=== PATIENT | female | born 1975 | race American Indian/Alaskan Native ===

== ENCOUNTER 2016-10-08 17:08 | Emergency (ER) | payer SELFPAY ==
--- NOTE | 2016-10-08 21:09 | Emergency Department Report ---
ED General Adult HPI - General Chief complaint: Headache Stated complaint: HEADACHE/COUGH Time Seen by Provider: 10/08/16 21:04 Source: patient Mode of arrival: Ambulatory Limitations: No Limitations - History of Present Illness Initial comments: 41-year-old -[place] female comes in complaining of headache this off and on since Friday. She reports it is worse while at work or being busy better with lying down and resting. Patient denies any nausea no vomiting she denies any dizziness or blurred vision. She does complain of chest pain only with the cough that started today. Patient complains of a nonproductive cough as well as nasal congestion runny nose and sneezing. Patient's last known menstrual period was 10/06/2016 she currently has no past medical history currently takes no medication on a daily basis. Her headaches as located in the frontal area. -: days(s) (4) Location: head Severity scale (0 -10): 7 Quality: dull Consistency: intermittent Improves with: rest Worsens with: movement Associated Symptoms: cough, other Treatments Prior to Arrival: NSAID (nasal congestion and sneezing) - Related Data Previous Rx's Medication Instructions Recorded Last Taken Type Cetirizine HCl [ZyrTEC] 10 mg PO QDAY #30 capsule 10/08/16 Unknown Rx Fluticasone [Flonase] 1 spray NS QDAY #1 bottle 10/08/16 Unknown Rx Pseudoephedrine [Sudafed] 30 mg PO Q6H PRN #60 tablet 10/08/16 Unknown Rx Allergies Allergy/AdvReac Type Severity Reaction Status Date / Time No Known Allergies Allergy Verified 10/08/16 17:58 ED Review of Systems ROS: Stated complaint: HEADACHE/COUGH Other details as noted in HPI ED Past Medical Hx - Past Medical History Hx Hypertension: Yes (WITH 1 ) - Surgical History Additional Surgical History: "UTERINE SURGERY". TUBAL LIGATION - Social History Smoking Status: Never Smoker Substance Use Type: None - Medications Home Medications: Home Medications Medication Instructions Recorded Confirmed Last Taken Type Cetirizine HCl [ZyrTEC] 10 mg PO QDAY #30 capsule 10/08/16 Unknown Rx Fluticasone [Flonase] 1 spray NS QDAY #1 bottle 10/08/16 Unknown Rx Pseudoephedrine [Sudafed] 30 mg PO Q6H PRN #60 tablet 10/08/16 Unknown Rx ED Physical Exam - General Limitations: No Limitations - Other Other exam information: GENERAL: Alert and oriented x3, no apparent distress, Normal Gait, atraumatic. HEAD: Head is normocephalic and a-traumatic. Frontal head tenderness EYES: Extra ocular muscles are intact. Pupils are equal, round, and reactive to light and accommodation. EARS: symetrical, atraumatic, non tender, ear canal clear and moderate cerumen, tympanic membrance non inflamed. gross auditory nml bilaterally. NOSE: Nose symetrical, Nontender,Nares appeared normal. Bilateral nares turbinates hypertrophic L exudate MOUTH:Mouth is well hydrated and without lesions. Tonsils nonerythematous or swollen, Uvula midline, Tongue not elevated. Mucous membranes are moist. Posterior pharynx clear, no exudate or lesions. Patent airways. Nasal drip NECK: Supple. Non edematous, No carotid bruits. No lymphadenopathy or thyromegaly. LUNGS: Symetrical with respiration, No wheezing, no rales or crackles, CTAB. HEART: S1, S2 present, regular rate and rhythm without murmur, no rubs, no gallops. ABDOMEN: No organomegaly was noted,Positive bowel sounds, soft, and non- distended. . Nontender to palpation on all Quadrants, NO CVA tenderness. EXTREMITIES/MUSCULOSKELETAL: No cyanosis, clubbing, rash, lesions or edema. Full ROM bilaterally. UE/LE Pulses 2+ bilaterally. LE and UE 5+ strength bilaterally NEUROLOGIC: No focal Deficit, Cranial nerves II through XII are grossly intact. No loss of sensation, No facial droop, PSYCHIATRIC: Mood is congruent with affect, . SKIN: Warm and dry, No lesions, No ulceration or induration present ED Course Vital Signs 10/08/16 10/08/16 18:00 22:01 Temperature 98.2 F Pulse Rate 74 82 Respiratory 20 Rate Blood Pressure 158/108 165/113 O2 Sat by Pulse 100 Oximetry - Reevaluation(s) Reevaluation #1: 10/08/16 23:36 Is reevaluated by this provider fast track patient reports her headache has gone away. Repeated her blood pressure by this provider was 139/100. Temperature was 97.9 respirations were 16 heart rate was 74. ED Medical Decision Making - Lab Data Result diagrams: 10/08/16 21:56 - Medical Decision Making Patient's been evaluated by this provider fast track. Request for nurse to repeat blood pressure concern for headache secondary to elevated blood pressure. Discussed with patient that this is most likely seasonal allergies since she has nasal congestion and runny nose sneezing and cough with clear lungs. Discussed with patient will place her on Zyrtec's Sudafed and Flonase and have her follow-up with an night clerk auditor. We will give patient clonidine 0.2 mg as well as check a BMP. Patient verbalized understanding Critical care attestation.: If time is entered above; I have spent that time in minutes in the direct care of this critically ill patient, excluding procedure time. ED Disposition Clinical Impression: Elevated blood pressure Seasonal allergies Qualifiers: Allergic rhinitis trigger: unspecified Qualified Code(s): J30.2 - Other seasonal allergic rhinitis Disposition: DISCHARGED TO HOME OR SELFCARE Is pt being admited?: No Does the pt Need Aspirin: No Condition: Stable Instructions: Heart Healthy Diet (ED), Low Sodium Diet (ED) Additional Instructions: Please follow-up with one of the providers that I have referred you to. It is very important for you to have her blood pressure checked within 3-5 days. Take medication as prescribed. Prescriptions: Cetirizine HCl [ZyrTEC] 10 mg PO QDAY #30 capsule Fluticasone [Flonase] 1 spray NS QDAY #1 bottle Pseudoephedrine [Sudafed] 30 mg PO Q6H PRN #60 tablet PRN Reason: Nasal Congestion Referrals: PRIMARY CARE, [Primary Care Provider] - 3-5 Days [facility] [Outside] - 3-5 Days [facility] [Outside] - 3-5 Days [facility] [Outside] - 3-5 Days [facility] [Outside] - 3-5 Days Forms: Work/School Release Form(ED)
[2016-10-08] MEDS ORDERED: CATAPRES PO ONE (21:48)
[2016-10-08 22:27] LABS: Anion Gap 16 mmol/L; BUN/Creatinine Ratio 8.75; Blood Urea Nitrogen 7 mg/dL (7-17); Calcium 9.1 mg/dL (8.4-10.2); Carbon Dioxide 24 mmol/L (22-30); Chloride 103.6 mmol/L (98-107); Glucose 95 mg/dL (65-100); Potassium 3.7 mmol/L (3.6-5.0); Sodium 140 mmol/L (137-145)
[2016-10-08 23:50] VITALS: BP 139/100
== END 2016-10-08 23:49 | disposition home or self-care (01) ==
LOC: ED 17:08
DX: R03.0 Elevated blood-pressure reading, without diagnosis of hypertension (principal); J30.2 Other seasonal allergic rhinitis; Z98.51 Tubal ligation status
CPT/HCPCS: 36415; 80048; 93005; 93010; 99283

== ENCOUNTER 2016-10-12 15:05 | Emergency (ER) | payer SELFPAY ==
--- NOTE | 2016-10-12 18:58 | Emergency Department Report ---
ED General Adult HPI - General Chief complaint: High BP Stated complaint: HIGH BP Time Seen by Provider: 10/12/16 18:39 Source: patient Mode of arrival: Ambulatory Limitations: No Limitations - History of Present Illness Initial comments: PT states she was seen on 10-08-16 for her allergies and she was dx with htn. PT states she was given a pill in the ED for her bp but was not sent home with any RX. PT states she went to the fire station today and had her bp rechecked and her bp was 202/140. PT states she came to the ED and her bp has gone down some. PT states since being in the ED, her bp has gone back up. PT was given RX for allergies, pt states she is only taken her Zyrtec. PT states her last dose of Sudafed was on FRI. PT denies CP/ headache/ sob MD Complaint: elevated bp -: Gradual, unknown (dx with htn on 10-08-16 ) Severity scale (0 -10): 0 Associated Symptoms: denies: chest pain, fever/chills, shortness of breath - Related Data Previous Rx's Medication Instructions Recorded Last Taken Type Cetirizine HCl [ZyrTEC] 10 mg PO QDAY #30 capsule 10/08/16 Unknown Rx Fluticasone [Flonase] 1 spray NS QDAY #1 bottle 10/08/16 Unknown Rx Pseudoephedrine [Sudafed] 30 mg PO Q6H PRN #60 tablet 10/08/16 Unknown Rx Allergies Allergy/AdvReac Type Severity Reaction Status Date / Time No Known Allergies Allergy Verified 10/12/16 15:40 ED Review of Systems ROS: Stated complaint: HIGH BP Other details as noted in HPI Comment: All other systems reviewed and negative ENT: other (nasal drainage ). denies: ear pain, congestion Respiratory: denies: shortness of breath, SOB with exertion, SOB at rest Cardiovascular: denies: chest pain, palpitations Neurological: denies: headache ED Past Medical Hx - Past Medical History Previous Medical History?: No Hx Hypertension: Yes (WITH 1 ) - Surgical History Past Surgical History?: No Additional Surgical History: "UTERINE SURGERY". TUBAL LIGATION - Social History Smoking Status: Never Smoker Substance Use Type: None - Medications Home Medications: Home Medications Medication Instructions Recorded Confirmed Last Taken Type Cetirizine HCl [ZyrTEC] 10 mg PO QDAY #30 capsule 10/08/16 Unknown Rx Fluticasone [Flonase] 1 spray NS QDAY #1 bottle 10/08/16 Unknown Rx Pseudoephedrine [Sudafed] 30 mg PO Q6H PRN #60 tablet 10/08/16 Unknown Rx ED Physical Exam - General Limitations: No Limitations General appearance: alert, in no apparent distress - Head Head exam: Present: atraumatic, normocephalic - ENT ENT exam: Present: mucous membranes moist, other (clear nasal drainage ) - Neck Neck exam: Present: normal inspection, full ROM. Absent: tenderness, lymphadenopathy - Respiratory Respiratory exam: Present: normal lung sounds bilaterally. Absent: respiratory distress, wheezes - Cardiovascular Cardiovascular Exam: Present: regular rate, normal rhythm, normal heart sounds - Extremities Exam Extremities exam: Present: normal inspection, full ROM - Back Exam Back exam: Present: normal inspection, full ROM - Neurological Exam Neurological exam: Present: alert, oriented X3, normal gait - Psychiatric Psychiatric exam: Present: normal affect, normal mood - Skin Skin exam: Present: warm, dry, intact, normal color ED Course Vital Signs 10/12/16 10/12/16 15:40 18:16 Temperature 98.1 F Pulse Rate 96 H 80 Respiratory 18 20 Rate Blood Pressure 161/107 Blood Pressure 177/106 [Right] O2 Sat by Pulse 96 Oximetry - Reevaluation(s) Reevaluation #1: 10/12/16 19:11 Reviewed note and lab from previous visit. Spoke to pt regarding the need to follow up with PCP. PT states she is going on Friday. PT advised to stop taking the Sudafed she was prescribed at previous visit. PT verbalizes understanding ED Medical Decision Making - Differential Diagnosis htn Critical care attestation.: If time is entered above; I have spent that time in minutes in the direct care of this critically ill patient, excluding procedure time. ED Disposition Clinical Impression: HTN (hypertension) Qualifiers: Hypertension type: essential hypertension Qualified Code(s): I10 - Essential ( primary) hypertension Disposition: DISCHARGED TO HOME OR SELFCARE Is pt being admited?: No Does the pt Need Aspirin: No Condition: Stable Instructions: Hypertension (ED) Additional Instructions: Stop Sudafed Follow up with PCP this week to establish primary care Return to ED if new or worsening symptoms. Referrals: PRIMARY CARE, [Primary Care Provider] - 3-5 Days Forms: Work/School Release Form(ED) Time of Disposition: 19:16
[2016-10-12] MEDS ORDERED: HCTZ PO ONE (19:11)
[2016-10-12 19:49] VITALS: BP 147/99
== END 2016-10-12 19:50 | disposition home or self-care (01) ==
LOC: ED 15:05
DX: I10 Essential (primary) hypertension (principal)
CPT/HCPCS: 99282

== ENCOUNTER 2016-11-11 11:22 | Emergency (ER) | payer SELFPAY ==
[2016-11-11 12:07] VITALS: BP 136/92
--- NOTE | 2016-11-11 12:24 | XRay Report ---
RIGHT HAND, 2 views: History: Right hand pain. The bony architecture is intact. There is poor separation of the fingers. Bony alignment is normal. No soft tissue abnormalities are seen. The joint spaces appear preserved. IMPRESSION: Unremarkable 2 views right hand.
--- NOTE | 2016-11-11 15:51 | Emergency Department Report ---
HPI - General Chief Complaint: Extremity Injury, Upper Time Seen by Provider: 11/11/16 15:07 - HPI HPI: She is a 41-year-old female presents to ED complaining of right hand pain 2 days. Patient states she was picking up some heavy boxes at work and shortly after that was when she started experiencing pulling type out of 10 intensity pain in the palm of her right hand. Patient states she went to work today but could not continue lifting due to pain. She denies fevers/chills/nausea/vomiting/spitting sections of breath or any other problems. ED Past Medical Hx - Past Medical History Previous Medical History?: Yes Hx Hypertension: Yes (WITH 1 ) - Surgical History Past Surgical History?: Yes Additional Surgical History: "UTERINE SURGERY". TUBAL LIGATION - Social History Smoking Status: Never Smoker Substance Use Type: None - Medications Home Medications: Home Medications Medication Instructions Recorded Confirmed Last Taken Type Cetirizine HCl [ZyrTEC] 10 mg PO QDAY #30 capsule 10/08/16 Unknown Rx Fluticasone [Flonase] 1 spray NS QDAY #1 bottle 10/08/16 Unknown Rx Hydrochlorothiazide [HCTZ] 25 mg PO QDAY #20 tablet 10/12/16 Unknown Rx Cyclobenzaprine [Flexeril] 10 mg PO QHS PRN #20 tablet 11/11/16 Unknown Rx Ibuprofen [Motrin] 600 mg PO Q8H PRN #20 tablet 11/11/16 Unknown Rx ED Review of Systems ROS: Stated complaint: RT HAND PAIN Other details as noted in HPI Constitutional: denies: chills, fever Eyes: denies: eye pain, eye discharge, vision change ENT: denies: ear pain, throat pain Respiratory: denies: cough, shortness of breath, wheezing Cardiovascular: denies: chest pain, palpitations Endocrine: no symptoms reported Gastrointestinal: denies: abdominal pain, nausea, diarrhea Genitourinary: denies: urgency, dysuria, discharge Musculoskeletal: denies: back pain, joint swelling, arthralgia Skin: denies: rash, lesions Neurological: denies: headache, weakness, paresthesias Psychiatric: denies: anxiety, depression Hematological/Lymphatic: denies: easy bleeding, easy bruising Physical Exam - Physical Exam Vital Signs: Vital Signs 11/11/16 12:05 Temperature 98.1 F Pulse Rate 78 Respiratory 18 Rate Blood Pressure 136/92 O2 Sat by Pulse 100 Oximetry Physical Exam: GENERAL: Alert and oriented x3, no apparent distress, Normal Gait, atraumatic. HEAD: Head is normocephalic and a-traumatic. EYES: Extra ocular muscles are intact. Pupils are equal, round, and reactive to light and accommodation. NECK: Supple. Non edematous, No carotid bruits. No lymphadenopathy or thyromegaly. No C-spine tenderness LUNGS: Symetrical with respiration, No wheezing, no rales or crackles, CTAB. HEART: S1, S2 present, regular rate and rhythm without murmur, no rubs, no gallops. ABDOMEN: No organomegaly was noted,Positive bowel sounds, soft, and non- distended. . Nontender to palpation on all Quadrants, NO CVA tenderness. EXTREMITIES/MUSCULOSKELETAL: No cyanosis, clubbing, rash, lesions or edema. Full ROM bilaterally in hands bilaterally. Capillary refill 2 seconds. Non- edema, mild tenderness to palpation of the palm. UE Pulses 2+ bilaterally. UE 5 + strength bilaterally, NEUROLOGIC: No focal Deficit, Cranial nerves II through XII are grossly intact. No loss of sensation, SKIN: Warm and dry, No lesions, No ulceration or induration present. ED Course Vital Signs 11/11/16 12:05 Temperature 98.1 F Pulse Rate 78 Respiratory 18 Rate Blood Pressure 136/92 O2 Sat by Pulse 100 Oximetry ED Medical Decision Making - Medical Decision Making 41-year-old female presents with right hand pain ED course: Discussed the patient and her wrist hand Disposition and take medication as prescribed. Discussed the patient was the symptoms return to ED. Vital signs are normal patient is in no acute distress. Patient verbalization understands and will comply to follow instructions as given Critical care attestation.: If time is entered above; I have spent that time in minutes in the direct care of this critically ill patient, excluding procedure time. ED Disposition Clinical Impression: Myalgia Disposition: DISCHARGED TO HOME OR SELFCARE Is pt being admited?: No Does the pt Need Aspirin: No Condition: Stable Instructions: Trigger Point Pain (ED), Musculoskeletal Pain (ED), Heat Pack Application (ED) Prescriptions: Cyclobenzaprine [Flexeril] 10 mg PO QHS PRN #20 tablet PRN Reason: Muscle Spasm Ibuprofen [Motrin] 600 mg PO Q8H PRN #20 tablet PRN Reason: Pain Referrals: PRIMARY CARE, [Primary Care Provider] - 3-5 Days RICARDO GALVAN MD [Referring] - 3-5 Days [facility] [Outside] - 3-5 Days [facility] [Outside] - 3-5 Days Forms: Work/School Release Form(ED) Time of Disposition: 15:53
== END 2016-11-11 16:16 | disposition home or self-care (01) ==
LOC: ED 11:22
DX: M79.1 Myalgia (principal); I10 Essential (primary) hypertension
CPT/HCPCS: 99283

== ENCOUNTER 2017-11-30 10:05 | Emergency (ER) | payer SELFPAY ==
[2017-11-30] MEDS ORDERED: MOTRIN PO ONE (10:31)
[2017-11-30] MEDS ORDERED: HCTZ PO ONE (10:31)
[2017-11-30] MEDS ORDERED: NORVASC PO ONE (10:38)
--- NOTE | 2017-11-30 10:49 | Emergency Department Report ---
ED Lower Extremity HPI - General Chief Complaint: Extremity Injury, Lower Stated Complaint: FOOT SWOLLEN X4DAYS/HIGH BP Time Seen by Provider: 11/30/17 10:31 Source: patient Mode of arrival: Ambulatory Limitations: No Limitations - History of Present Illness Initial Comments: This is a 42-year-old female nontoxic, well nourished in appearance, no acute signs of distress presents to the ED with c/o of right ankle pain and swelling x3 days. Patient stated she has been walking a lot on her feet. Patient denies any trauma to the area. Patient denies any joint redness, joint swelling, fever , chills, nausea, vomiting, chest pain or shortness breath. Patient denies abnormal or decreased gait. Patient denies any allergies. PMH includes HTN which patient stated has not been taking any medications because her MD took her off it. PAtient stated that pat week her blood pressure was elevated and she was not able to follow-up with PCP. MD Complaint: ankle injury -: days(s) (3) Injury: Ankle: Right Place: home Severity: mild Severity scale (0 -10): 8 Improves With: immobilization Worsens With: movement, palpation Associated Symptoms: swelling, able to partially bear weight, ambulatory. denies: snap/pop sensation, numbness, tingling, unable to bear weight - Related Data Previous Rx's Medication Instructions Recorded Last Taken Type Cetirizine HCl [ZyrTEC] 10 mg PO QDAY #30 capsule 10/08/16 Unknown Rx Fluticasone [Flonase] 1 spray NS QDAY #1 bottle 10/08/16 Unknown Rx Hydrochlorothiazide [HCTZ] 25 mg PO QDAY #20 tablet 10/12/16 Unknown Rx Cyclobenzaprine [Flexeril] 10 mg PO QHS PRN #20 tablet 11/11/16 Unknown Rx Ibuprofen [Motrin] 600 mg PO Q8H PRN #20 tablet 11/11/16 Unknown Rx Hydrochlorothiazide [HCTZ] 25 mg PO QDAY #30 tablet 11/30/17 Unknown Rx Ibuprofen [Motrin] 600 mg PO Q8H PRN #30 tablet 11/30/17 Unknown Rx amLODIPine [Norvasc] 10 mg PO DAILY #30 tab 11/30/17 Unknown Rx Allergies Allergy/AdvReac Type Severity Reaction Status Date / Time No Known Allergies Allergy Verified 11/30/17 10:07 ED Review of Systems ROS: Stated complaint: FOOT SWOLLEN X4DAYS/HIGH BP Other details as noted in HPI Constitutional: denies: chills, fever Eyes: denies: eye pain, eye discharge, vision change ENT: denies: ear pain, throat pain Respiratory: denies: cough, shortness of breath, wheezing Cardiovascular: denies: chest pain, palpitations Endocrine: no symptoms reported Gastrointestinal: denies: abdominal pain, nausea, diarrhea Genitourinary: denies: urgency, dysuria, discharge Musculoskeletal: arthralgia. denies: back pain, joint swelling Skin: denies: rash, lesions Neurological: denies: headache, weakness, paresthesias Psychiatric: denies: anxiety, depression Hematological/Lymphatic: denies: easy bleeding, easy bruising ED Past Medical Hx - Past Medical History Hx Hypertension: Yes - Surgical History Additional Surgical History: "UTERINE SURGERY". TUBAL LIGATION - Social History Smoking Status: Never Smoker - Medications Home Medications: Home Medications Medication Instructions Recorded Confirmed Last Taken Type Cetirizine HCl [ZyrTEC] 10 mg PO QDAY #30 capsule 10/08/16 Unknown Rx Fluticasone [Flonase] 1 spray NS QDAY #1 bottle 10/08/16 Unknown Rx Hydrochlorothiazide [HCTZ] 25 mg PO QDAY #20 tablet 10/12/16 Unknown Rx Cyclobenzaprine [Flexeril] 10 mg PO QHS PRN #20 tablet 11/11/16 Unknown Rx Ibuprofen [Motrin] 600 mg PO Q8H PRN #20 tablet 11/11/16 Unknown Rx Hydrochlorothiazide [HCTZ] 25 mg PO QDAY #30 tablet 11/30/17 Unknown Rx Ibuprofen [Motrin] 600 mg PO Q8H PRN #30 tablet 11/30/17 Unknown Rx amLODIPine [Norvasc] 10 mg PO DAILY #30 tab 11/30/17 Unknown Rx ED Physical Exam - General Limitations: No Limitations General appearance: alert, in no apparent distress - Head Head exam: Present: atraumatic, normocephalic - Eye Eye exam: Present: normal appearance Pupils: Present: normal accommodation - ENT ENT exam: Present: normal exam, mucous membranes moist - Neck Neck exam: Present: normal inspection, full ROM. Absent: tenderness, meningismus, lymphadenopathy - Respiratory Respiratory exam: Present: normal lung sounds bilaterally. Absent: respiratory distress, wheezes, rales, rhonchi, stridor, chest wall tenderness, accessory muscle use, decreased breath sounds, prolonged expiratory - Cardiovascular Cardiovascular Exam: Present: regular rate, normal rhythm, normal heart sounds. Absent: bradycardia, tachycardia, irregular rhythm, systolic murmur, diastolic murmur, rubs, gallop - GI/Abdominal GI/Abdominal exam: Present: soft, normal bowel sounds. Absent: distended, tenderness, guarding, rebound, rigid, diminished bowel sounds - Rectal Rectal exam: Present: deferred - Extremities Exam Extremities exam: Present: normal inspection, full ROM, tenderness, normal capillary refill. Absent: joint swelling, calf tenderness - Expanded Lower Extremity Exam Right Hip exam: Present: normal inspection, full ROM Upper Leg exam: Present: normal inspection, full ROM Knee exam: Present: normal inspection, full ROM Lower Leg exam: Present: normal inspection, full ROM Ankle exam: Present: normal inspection, full ROM, tenderness, swelling. Absent : abrasion, laceration, ecchymosis, deformity, crepidus, dislocation, erythema, anterior draw sign Foot/Toe exam: Present: normal inspection, full ROM. Absent: tenderness, swelling, abrasion, laceration, ecchymosis, deformity, crepidus, dislocation, erythema, amputation, puncture wound, foreign body, calcaneal tenderness, tenderness at base of 5th metatarsal, nail avulsion, subungual hematoma Neuro vascular tendon exam: Present: no vascular compromise. Absent: pulse deficit, abnormal cap refill, motor deficit, sensory deficit, tendon deficit, extremity cold to touch, pallor, abnormal 2-point discrimination, decreased fine /light touch, foot drop, peroneal nerve deficit, significant pain with passive ROM of distal joint Gait: Positive: observed and limited by pain - Back Exam Back exam: Present: normal inspection, full ROM - Neurological Exam Neurological exam: Present: alert, oriented X3, normal gait - Psychiatric Psychiatric exam: Present: normal affect, normal mood - Skin Skin exam: Present: warm, dry, intact, normal color. Absent: rash ED Course Vital Signs 11/30/17 10:07 Temperature 98.5 F Pulse Rate 86 Respiratory 18 Rate Blood Pressure 166/109 O2 Sat by Pulse 100 Oximetry - Reevaluation(s) Reevaluation #1: 05/27/18 10:53 Patient is speaking in full sentences with no signs of distress noted. ED Lower Extremity MDM - Medical Decision Making This is a 42-year-old female that presents with right ankle strain and HTN. Patient is stable and was examined by me. I referred patient to an orthopedic doctor for further evaluation for possible MRI. X-ray has been obtained and dictated by the radiologist. Patient is notified of the x-ray report with noted by the patient. Patient does have normal gait with no tenderness and no joint swelling. No ecchymosis. no joint redness or swelling. Not warm to touch. No signs of cellulites present. Patient was instructed to RICE therapy. Patient received Motrin for pain. Patient also is treated with her medications that she stayed stopped taking which was HCTZ 25 mg and Norvasc 10 mg. I will prescribed patient her medications and will have patient f/u with PCP. Patient is discharged with Motrin. At time of discharge, the patient does not seem toxic or ill in appearance. No acute signs of distress noted. Patient agrees to discharge treatment plan of care. No further questions noted by the patient. Critical care attestation.: If time is entered above; I have spent that time in minutes in the direct care of this critically ill patient, excluding procedure time. ED Disposition Clinical Impression: Hypertension Qualifiers: Hypertension type: unspecified Qualified Code(s): I10 - Essential (primary) hypertension Right ankle sprain Qualifiers: Encounter type: initial encounter Involved ligament of ankle: unspecified ligament Qualified Code(s): S93.401A - Sprain of unspecified ligament of right ankle, initial encounter Disposition: TO HOME OR SELFCARE Is pt being admited?: No Does the pt Need Aspirin: No Condition: Stable Instructions: Hypertension (ED), Ankle Sprain (ED), RICE Therapy (ED), Ibuprofen (By mouth) Additional Instructions: Follow-up with a primary care doctor in 3-5 days or if symptoms worsen and continue return to emergency room as soon as possible. Keep a daily diary of your blood pressure and present it to your primary care doctor. Prescriptions: amLODIPine [Norvasc] 10 mg PO DAILY #30 tab Hydrochlorothiazide [HCTZ] 25 mg PO QDAY #30 tablet Ibuprofen [Motrin] 600 mg PO Q8H PRN #30 tablet PRN Reason: Pain Referrals: PRIMARY CARE, [Primary Care Provider] - 3-5 Days GOODJOIN,ALANNAH B, MD [Staff Physician] - 3-5 Days [facility] [Outside] - 3-5 Days [facility] [Outside] - 3-5 Days GAYATRI CERVANTES MD [Staff Physician] - 3-5 Days Forms: Work/School Release Form(ED)
[2017-11-30 11:43] VITALS: BP 151/91
== END 2017-11-30 12:02 | disposition home or self-care (01) ==
LOC: ED 10:05
DX: S93.401A Sprain of unspecified ligament of right ankle, initial encounter (principal); I10 Essential (primary) hypertension; Z98.51 Tubal ligation status; X58.XXXA Exposure to other specified factors, initial encounter; Y93.01 Activity, walking, marching and hiking; Y92.098 Other place in other non-institutional residence as the place of occurrence of the external cause; Y99.8 Other external cause status
CPT/HCPCS: 99283

== ENCOUNTER 2018-01-06 11:23 | Emergency (ER) | payer OTHER ==
[2018-01-06 11:30] VITALS: BP 146/96
--- NOTE | 2018-01-06 12:11 | Emergency Department Report ---
Chief Complaint: Extremity Injury, Lower Stated Complaint: SWOLLEN ANKLE Time Seen by Provider: 01/06/18 12:05 - HPI History of Present Illness: Patient is a 42-year-old [place] female who has intermittent right ankle swelling. This happens randomly has been going on for several weeks. Patientis no pain is no injury. No chest pain shortness of breath fevers chills. - ROS Review of Systems: All other systems reviewed and are negative - Exam Vital Signs: Vital Signs 01/06/18 11:27 Temperature 98.6 F Pulse Rate 73 Respiratory 20 Rate Blood Pressure 146/96 O2 Sat by Pulse 98 Oximetry Physical Exam: Focused physical exam patient has trace ankle swelling on the right lower extremity. There is no warmth redness or tenderness. MSE screening note: Focused history and physical exam performed. Due to findings the following was ordered: ED Medical Decision Making - Medical Decision Making Patient has very slight dependent edema. Did have a conversation with the patient regarding venous return of blood flow. Patient is not medical emergency. Patient has elected to not pay the $150 co-pay. Patient will be given information for a vascular doctor ED Disposition for MSE Clinical Impression: Dependent edema Disposition: Z-07 MED SCREENING EXAM-LEFT Is pt being admited?: No Does the pt Need Aspirin: No Condition: Stable Referrals: IVY CARMONA MD [Staff Physician] - 3-5 Days
== END 2018-01-06 12:17 | disposition left against medical advice (07) ==
LOC: ED 11:23
DX: M25.471 Effusion, right ankle (principal); Z53.21 Procedure and treatment not carried out due to patient leaving prior to being seen by health care provider

== ENCOUNTER 2019-01-14 14:03 | Emergency (ER) | payer OTHER ==
--- NOTE | 2019-01-14 14:37 | Event Note ---
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 Further treatment and workup at subsequent clinical providers discretion. Patient/guardian urged not to elope from the ED as their condition may be serious if not clinically assessed and managed. Initial orders include: XR of the left wrist and hand
--- NOTE | 2019-01-14 15:15 | XRay Report ---
Left wrist 3 views INDICATION / CLINICAL INFORMATION: left wrist pain. COMPARISON: None available. FINDINGS: BONES/JOINT(S): No acute fracture or subluxation. No significant degenerative changes. SOFT TISSUES: No significant abnormality. ADDITIONAL FINDINGS: None. Signer Name: Amor Reese MD Signed: 01/14/2019 3:07 PM Workstation Name: [id number]
--- NOTE | 2019-01-14 15:15 | XRay Report ---
3 views of the left hand INDICATION / CLINICAL INFORMATION: left hand pain. COMPARISON: None available. FINDINGS: BONES/JOINT(S): No acute fracture or subluxation. No significant degenerative changes. SOFT TISSUES: No significant abnormality. ADDITIONAL FINDINGS: None. Signer Name: Amor Reese MD Signed: 01/14/2019 3:08 PM Workstation Name: [id number]
--- NOTE | 2019-01-14 15:45 | Emergency Department Report ---
ED General Adult HPI - General Chief complaint: Extremity Injury, Upper Stated complaint: LT HAND AND WRIST PAIN Time Seen by Provider: 01/14/19 14:35 Source: patient Mode of arrival: Ambulatory Limitations: No Limitations - History of Present Illness Initial comments: Patient presents to the emergency department with a chief complaint of left wrist and left hand pain that started 1 week ago. [place] but denies any neck trauma or acute injury. Describes the pain as sharp in nature and made worse with movement or lifting. -: Sudden Location: upper extremity Radiation: non-radiation Severity scale (0 -10): 9 Quality: aching Consistency: constant Improves with: rest Worsens with: movement Associated Symptoms: denies other symptoms Treatments Prior to Arrival: none - Related Data Previous Rx's Medication Instructions Recorded Last Taken Type Cetirizine HCl [ZyrTEC] 10 mg PO QDAY #30 capsule 10/08/16 Unknown Rx Fluticasone [Flonase] 1 spray NS QDAY #1 bottle 10/08/16 Unknown Rx hydroCHLOROthiazide [HCTZ] 25 mg PO QDAY #20 tablet 10/12/16 Unknown Rx Cyclobenzaprine [Flexeril] 10 mg PO QHS PRN #20 tablet 11/11/16 Unknown Rx Ibuprofen [Motrin] 600 mg PO Q8H PRN #20 tablet 11/11/16 Unknown Rx Ibuprofen [Motrin] 600 mg PO Q8H PRN #30 tablet 11/30/17 Unknown Rx amLODIPine [Norvasc] 10 mg PO DAILY #30 tab 11/30/17 Unknown Rx hydroCHLOROthiazide [HCTZ] 25 mg PO QDAY #30 tablet 11/30/17 Unknown Rx Naproxen [Naprosyn] 500 mg PO BID PRN #20 tablet 01/14/19 Unknown Rx predniSONE [Deltasone] 20 mg PO DAILY #15 tablet 01/14/19 Unknown Rx Allergies Allergy/AdvReac Type Severity Reaction Status Date / Time No Known Allergies Allergy Verified 01/14/19 14:04 ED Review of Systems ROS: Stated complaint: LT HAND AND WRIST PAIN Other details as noted in HPI Comment: All other systems reviewed and negative Constitutional: denies: chills, fever Eyes: denies: eye pain, eye discharge, vision change ENT: denies: ear pain, throat pain Respiratory: denies: cough, shortness of breath, wheezing Cardiovascular: denies: chest pain, palpitations Endocrine: no symptoms reported Gastrointestinal: denies: abdominal pain, nausea, diarrhea Genitourinary: denies: urgency, dysuria, discharge Musculoskeletal: denies: back pain, joint swelling, arthralgia Skin: denies: rash, lesions Neurological: denies: headache, weakness, paresthesias Psychiatric: denies: anxiety, depression Hematological/Lymphatic: denies: easy bleeding, easy bruising ED Past Medical Hx - Past Medical History Hx Hypertension: Yes - Surgical History Additional Surgical History: TUBAL LIGATION - Social History Smoking Status: Never Smoker Substance Use Type: None - Medications Home Medications: Home Medications Medication Instructions Recorded Confirmed Last Taken Type Cetirizine HCl [ZyrTEC] 10 mg PO QDAY #30 capsule 10/08/16 Unknown Rx Fluticasone [Flonase] 1 spray NS QDAY #1 bottle 10/08/16 Unknown Rx hydroCHLOROthiazide [HCTZ] 25 mg PO QDAY #20 tablet 10/12/16 Unknown Rx Cyclobenzaprine [Flexeril] 10 mg PO QHS PRN #20 tablet 11/11/16 Unknown Rx Ibuprofen [Motrin] 600 mg PO Q8H PRN #20 tablet 11/11/16 Unknown Rx Ibuprofen [Motrin] 600 mg PO Q8H PRN #30 tablet 11/30/17 Unknown Rx amLODIPine [Norvasc] 10 mg PO DAILY #30 tab 11/30/17 Unknown Rx hydroCHLOROthiazide [HCTZ] 25 mg PO QDAY #30 tablet 11/30/17 Unknown Rx Naproxen [Naprosyn] 500 mg PO BID PRN #20 tablet 01/14/19 Unknown Rx predniSONE [Deltasone] 20 mg PO DAILY #15 tablet 01/14/19 Unknown Rx ED Physical Exam - General Limitations: No Limitations General appearance: alert, in no apparent distress - Head Head exam: Present: atraumatic, normocephalic - Eye Eye exam: Present: normal appearance - ENT ENT exam: Present: mucous membranes moist - Neck Neck exam: Present: normal inspection - Respiratory Respiratory exam: Present: normal lung sounds bilaterally, respiratory distress - Cardiovascular Cardiovascular Exam: Present: regular rate, normal rhythm. Absent: systolic murmur, diastolic murmur, rubs, gallop - Extremities Exam Extremities exam: Present: other (tender to palpation over the palmar aspect of the distal antebrachium) - Back Exam Back exam: Present: normal inspection - Neurological Exam Neurological exam: Present: alert, oriented X3, CN II-XII intact. Absent: motor sensory deficit - Psychiatric Psychiatric exam: Present: normal affect, normal mood - Skin Skin exam: Present: warm, dry, intact, normal color. Absent: rash ED Course Vital Signs 01/14/19 14:35 Temperature 98.5 F Pulse Rate 94 H Respiratory 16 Rate Blood Pressure 160/98 [Right] O2 Sat by Pulse 100 Oximetry ED Medical Decision Making - Radiology Data Radiology results: report reviewed - Medical Decision Making Results discussed with patient Encouraged to use a brace Critical care attestation.: If time is entered above; I have spent that time in minutes in the direct care of this critically ill patient, excluding procedure time. ED Disposition Clinical Impression: Wrist pain, acute, Hand pain, left Disposition: DC-01 TO HOME OR SELFCARE Is pt being admited?: No Does the pt Need Aspirin: No Condition: Stable Instructions: Wrist Injury (ED) Additional Instructions: return if worse Referrals: CLAU GARCIA MD [Primary Care Provider] - 3-5 Days [facility] [Provider Group] - 3-5 Days [facility] [Provider Group] - 3-5 Days Time of Disposition: 15:44
[2019-01-14 15:59] VITALS: BP 154/90
== END 2019-01-14 15:58 | disposition home or self-care (01) ==
LOC: ED 14:03
DX: M25.532 Pain in left wrist (principal); M79.642 Pain in left hand; I10 Essential (primary) hypertension; Z98.51 Tubal ligation status; Z79.899 Other long term (current) drug therapy; X50.0XXA Overexertion from strenuous movement or load, initial encounter; Y93.9 Activity, unspecified; Y92.89 Other specified places as the place of occurrence of the external cause; Y99.8 Other external cause status

== ENCOUNTER 2020-05-06 18:58 | Emergency (ER) | payer SELFPAY ==
--- NOTE | 2020-05-06 19:42 | Event Note ---
ED Screening Note ED Screening Note: presents for HTN frontal GAO x2 days states she is on hctz and believes lisinopril denies any missed doses no vision changes, CP, SOB, n/v/d, fever no other PMHX no allergies to meds LNMP last week repeat BP is 174/113 This initial assessment/diagnostic orders/clinical plan/treatment(s) is/are subject to change based on patients health status, clinical progression and re- assessment by fellow clinical providers in the ED. Further treatment and workup at subsequent clinical providers discretion. Patient/guardian urged not to elope from the ED as their condition may be serious if not clinically assessed and managed. Initial orders include: labs UA
[2020-05-06 19:57] LABS: Basophils # (Auto) 0.1 K/mm3 (0.0-0.1); Basophils % (Auto) 0.6 % (0.0-1.8); Eosinophils # (Auto) 0.2 K/mm3 (0.0-0.4); Eosinophils % (Auto) 1.6 % (0.0-4.3); Hematocrit 45.7 % (30.3-42.9); Hemoglobin 15.3 gm/dl (10.1-14.3); Lymphocytes # (Auto) 2.4 K/mm3 (1.2-5.4); Lymphocytes % (Auto) 17.9 % (13.4-35.0); Mean Corpuscular HGB Conc 33 % (30-34); Mean Corpuscular Volume 88 fl (79-97); Monocytes # (Auto) 0.8 K/mm3 (0.0-0.8); Monocytes % (Auto) 5.9 % (0.0-7.3); Platelet Count 199 K/mm3 (140-440); Red Blood Count 5.22 M/mm3 (3.65-5.03); Red Cell Distribution Width 13.7 % (13.2-15.2)
[2020-05-06 20:16] LABS: Alanine Aminotransferase 14 units/L (7-56); Albumin 4.5 g/dL (3.9-5); BUN/Creatinine Ratio 9; Blood Urea Nitrogen 8 mg/dL (7-17); Hemolysis Index 8
[2020-05-07] MEDS ORDERED: cloNIDine 0.2 MG TAB PO ONE (02:17)
[2020-05-07] MEDS ORDERED: POTASSIUM CHLORIDE ER 20 MEQ TAB PO ONE (02:25)
--- NOTE | 2020-05-07 02:26 | Emergency Department Report ---
HPI - General Chief Complaint: Headache Time Seen by Provider: 05/06/20 19:39 - HPI HPI: Room 24 The patient is a 44-year-old female present with a chief complaint of headache. Patient states for the past 2 days she has had a constant frontal headache. Patient states she is also notes her blood pressure has been elevated despite being compliant with her medication. Patient denies nausea or vomiting. ED Past Medical Hx - Past Medical History Previous Medical History?: Yes Hx Hypertension: Yes - Surgical History Past Surgical History?: Yes Additional Surgical History: TUBAL LIGATION - Family History Family history: no significant - Social History Smoking Status: Never Smoker Substance Use Type: None (Denies illicit drug use), Alcohol (Occasional) - Medications Home Medications: Home Medications Medication Instructions Recorded Confirmed Last Taken Type Cetirizine HCl [ZyrTEC] 10 mg PO QDAY #30 capsule 10/08/16 Unknown Rx Fluticasone [Flonase] 1 spray NS QDAY #1 bottle 10/08/16 Unknown Rx hydroCHLOROthiazide [HCTZ] 25 mg PO QDAY #20 tablet 10/12/16 Unknown Rx Cyclobenzaprine [Flexeril] 10 mg PO QHS PRN #20 tablet 11/11/16 Unknown Rx Ibuprofen [Motrin] 600 mg PO Q8H PRN #20 tablet 11/11/16 Unknown Rx Ibuprofen [Motrin] 600 mg PO Q8H PRN #30 tablet 11/30/17 Unknown Rx amLODIPine [Norvasc] 10 mg PO DAILY #30 tab 11/30/17 Unknown Rx hydroCHLOROthiazide [HCTZ] 25 mg PO QDAY #30 tablet 11/30/17 Unknown Rx Naproxen [Naprosyn] 500 mg PO BID PRN #20 tablet 01/14/19 Unknown Rx predniSONE [Deltasone] 20 mg PO DAILY #15 tablet 01/14/19 Unknown Rx Butalb/Acetamin/Caff 50-325-40 1 - 2 tab PO Q8HR PRN #10 tablet 05/07/20 Unknown Rx [Fioricet 50-325-40] ED Review of Systems ROS: Stated complaint: BP HIGH/HEADACHE Other details as noted in HPI Constitutional: no symptoms reported Eyes: denies: eye pain ENT: denies: throat pain Respiratory: no symptoms reported Cardiovascular: denies: chest pain Endocrine: no symptoms reported Gastrointestinal: denies: nausea, vomiting Genitourinary: denies: dysuria Musculoskeletal: denies: back pain Neurological: headache Physical Exam - Physical Exam Vital Signs: Vital Signs 05/06/20 19:02 Temperature 98.4 F Pulse Rate 99 H Respiratory 18 Rate Blood Pressure 193/124 [Right] O2 Sat by Pulse 98 Oximetry Vital Signs 05/06/20 05/07/20 05/07/20 19:02 02:32 02:33 Temperature 98.4 F Pulse Rate 99 H 84 84 Respiratory 18 18 Rate Blood Pressure 174/110 Blood Pressure 193/124 174/110 [Right] O2 Sat by Pulse 98 Oximetry 05/07/20 05/07/20 05/07/20 02:45 03:01 03:15 Temperature Pulse Rate 84 86 85 Respiratory 20 17 14 Rate Blood Pressure 180/110 180/110 148/106 Blood Pressure [Right] O2 Sat by Pulse 96 98 96 Oximetry 05/07/20 05/07/20 03:31 03:45 Temperature Pulse Rate 79 79 Respiratory 15 13 Rate Blood Pressure 140/98 135/96 Blood Pressure [Right] O2 Sat by Pulse 96 96 Oximetry Physical Exam: GENERAL: The patient is well-developed well-nourished female lying on stretcher not appearing to be in acute distress. [] HEENT: Normocephalic. Atraumatic. Extraocular motions are intact. Patient has moist mucous membranes. NECK: Supple. No meningitic signs are noted. Trachea midline CHEST/LUNGS: Clear to auscultation. There is no respiratory distress noted. HEART/CARDIOVASCULAR: Regular. There is no tachycardia. There is no gallop rub or murmur. ABDOMEN: Abdomen is soft, nontender. Patient has normal bowel sounds. There is no abdominal distention. SKIN: There is no rash. There is no edema. There is no diaphoresis. NEURO: The patient is awake, alert, and oriented. The patient is cooperative. The patient has no focal neurologic deficits. The patient has normal speech. Cranial nerves II through XII grossly intact. GCS 15 MUSCULOSKELETAL: There is no evidence of acute injury. ED Course Vital Signs 05/06/20 19:02 Temperature 98.4 F Pulse Rate 99 H Respiratory 18 Rate Blood Pressure 193/124 [Right] O2 Sat by Pulse 98 Oximetry ED Medical Decision Making - Lab Data Result diagrams: 05/06/20 19:40 05/06/20 19:40 Laboratory Tests 05/06/20 05/06/20 19:40 19:40 WBC 13.5 H RBC 5.22 H Hgb 15.3 H Hct 45.7 H MCV 88 MCH 29 MCHC 33 RDW 13.7 Plt Count 199 Lymph % (Auto) 17.9 Larue % (Auto) 5.9 Eos % (Auto) 1.6 Baso % (Auto) 0.6 Lymph # (Auto) 2.4 Larue # (Auto) 0.8 Eos # (Auto) 0.2 Baso # (Auto) 0.1 Seg Neutrophils % 74.0 H Seg Neutrophils # 10.0 H Sodium 138 Potassium 3.0 L Chloride 94.8 L Carbon Dioxide 27 Anion Gap 19 BUN 8 Creatinine 0.9 Estimated GFR > 60 BUN/Creatinine Ratio 9 Glucose 119 H Calcium 10.0 Total Bilirubin 0.50 AST 18 ALT 14 Alkaline Phosphatase 72 Total Protein 7.8 Albumin 4.5 Albumin/Globulin Ratio 1.4 - Radiology Data Radiology results: report reviewed (CT head), image reviewed (CT head) [place] [address] Cat Scan Report Signed Patient: SLIM LOZOYA MR#: [id number] : 1975 Acct:[id number] Age/Sex: 44 / F ADM Date: 05/06/20 Loc: ED Attending Dr: Ordering Physician: SELAM EDWARDS MD Date of Service: 05/07/20 Procedure(s): CT head/brain wo con Accession Number(s): [id number] cc: SELAM EDWARDS MD CT head without contrast INDICATION : Headache with hypertension. TECHNIQUE: Axial imaging performed from the skull apex through the skull base without the use of contrast. All CT examinations performed at this facility utilize dose modulation, iterative reconstruction or weight-based dosing, when appropriate, to reduce radiation dose to as low as reasonably achievable. COMPARISON: None FINDINGS: No acute intracranial hemorrhage or parenchymal abnormality. Ventricles are normal in size and appear symmetric. Soft tissues including the orbits appear normal. No acute osseous abnormality. Sinuses and mastoid air cells are clear. IMPRESSION: No acute abnormality. Signer Name: Doug Coyne MD Signed: 05/07/2020 2:44 AM Workstation Name: [id number] Transcribed By: Dictated By: Doug Coyne MD Electronically Authenticated By: Doug Coyne MD Signed Date/Time: 05/07/20243 DD/ 2 TD/TT: - Differential Diagnosis Hypertensive urgency, uncontrolled hypertension, intracranial bleed, Critical care attestation.: If time is entered above; I have spent that time in minutes in the direct care of this critically ill patient, excluding procedure time. ED Disposition Clinical Impression: Uncontrolled hypertension, Headache Disposition: TO HOME OR SELFCARE Is pt being admited?: No Does the pt Need Aspirin: No Condition: Stable Instructions: Hypertension (ED) Additional Instructions: Return to the emergency department should you develop worsening symptoms, inability to tolerate food or liquids, high fever or any other concerns Prescriptions: Butalb/Acetamin/Caff 50-325-40 [Fioricet 50-325-40] 1 - 2 tab PO Q8HR PRN #10 tablet PRN Reason: Headache Referrals: [facility] [Provider Group] - [facility] (It is important that you follow-up with your primary physician for further management of your high blood pressure.) Time of Disposition: 04:28
--- NOTE | 2020-05-07 02:48 | Cat Scan Report ---
CT head without contrast INDICATION : Headache with hypertension. TECHNIQUE: Axial imaging performed from the skull apex through the skull base without the use of con trast. All CT examinations performed at this facility utilize dose modulation, iterative reconstruct ion or weight-based dosing, when appropriate, to reduce radiation dose to as low as reasonably achiev able. COMPARISON: None FINDINGS: No acute intracranial hemorrhage or parenchymal abnormality. Ventricles are normal in si ze and appear symmetric. Soft tissues including the orbits appear normal. No acute osseous abnorm ality. Sinuses and mastoid air cells are clear. IMPRESSION: No acute abnormality. Signer Name: Doug Coyne MD Signed: 05/07/2020 2:44 AM Workstation Name: [id number]
[2020-05-07 04:36] VITALS: BP 136/91
== END 2020-05-07 04:40 | disposition home or self-care (01) ==
LOC: ED 18:58
DX: I10 Essential (primary) hypertension (principal)
CPT/HCPCS: 36415; 70450; 80053; 85025

== ENCOUNTER 2021-02-18 12:21 | Emergency (ER) | payer MEDICAID ==
[2021-02-18 13:30] VITALS: BP 185/114
== END 2021-02-18 15:00 | disposition home or self-care (01) ==
LOC: ED 12:21
DX: S66.911A Strain of unspecified muscle, fascia and tendon at wrist and hand level, right hand, initial encounter (principal); G56.01 Carpal tunnel syndrome, right upper limb; I10 Essential (primary) hypertension; D57.3 Sickle-cell trait; Z98.890 Other specified postprocedural states; X58.XXXA Exposure to other specified factors, initial encounter; Y93.89 Activity, other specified; Y92.89 Other specified places as the place of occurrence of the external cause; Y99.8 Other external cause status
CPT/HCPCS: 99283

== ENCOUNTER 2021-11-30 14:59 | Emergency (ER) | payer MEDICAID ==
[2021-11-30 16:59] VITALS: BP 194/107
== END 2021-12-01 01:30 | disposition left against medical advice (07) ==
LOC: ED 14:59
DX: M79.603 Pain in arm, unspecified (principal); Z53.21 Procedure and treatment not carried out due to patient leaving prior to being seen by health care provider

== ENCOUNTER 2022-03-27 14:56 | Emergency (ER) | payer MEDICAID, OTHER ==
[2022-03-27 15:40] VITALS: BP 191/109
== END 2022-03-27 23:55 | disposition left against medical advice (07) ==
LOC: ED 14:56
DX: R50.9 Fever, unspecified (principal); M79.18 Myalgia, other site; R11.10 Vomiting, unspecified; Z53.21 Procedure and treatment not carried out due to patient leaving prior to being seen by health care provider